=== PATIENT | male | born 1930 ===

== ENCOUNTER 2017-01-03 11:33 | Outpatient (RCR) | payer MEDICARE, OTHER | END 2017-01-09 | disposition home or self-care (01) | LOC: WCC 11:33 | DX: L97.514 Non-pressure chronic ulcer of other part of right foot with necrosis of bone (principal); E11.621 Type 2 diabetes mellitus with foot ulcer; Z96.649 Presence of unspecified artificial hip joint; Z95.2 Presence of prosthetic heart valve; Z95.0 Presence of cardiac pacemaker; I73.9 Peripheral vascular disease, unspecified; I10 Essential (primary) hypertension; E11.9 Type 2 diabetes mellitus without complications; N28.9 Disorder of kidney and ureter, unspecified; Z79.01 Long term (current) use of anticoagulants | CPT/HCPCS: G0463 ==

== ENCOUNTER 2017-01-12 13:00 | Outpatient (RCR) | payer MEDICARE, OTHER | END 2017-02-09 | disposition home or self-care (01) | LOC: WCC 13:00 | DX: L97.514 Non-pressure chronic ulcer of other part of right foot with necrosis of bone (principal); E11.621 Type 2 diabetes mellitus with foot ulcer; I10 Essential (primary) hypertension; N28.9 Disorder of kidney and ureter, unspecified; Z95.5 Presence of coronary angioplasty implant and graft; Z96.649 Presence of unspecified artificial hip joint; Z95.0 Presence of cardiac pacemaker; Z79.01 Long term (current) use of anticoagulants | CPT/HCPCS: 82962; G0277 ==